=== PATIENT | male | born 1985 | race Caucasian/White ===

== ENCOUNTER 2022-05-02 17:10 | Emergency (ER) | payer OTHER ==
[2022-05-02 17:21] VITALS: BP 107/67; PULSE 76; RESP 20; TEMP 98.3
--- NOTE | 2022-05-02 17:39 | ED ---
General Adult HPI - General Chief complaint: Extremity Injury, Upper Stated complaint: Wrist injury Time Seen by Provider: 05/02/22 17:21 Source: patient, RN notes reviewed, old records reviewed Mode of arrival: ambulatory Limitations: no limitations - History of Present Illness Initial comments: 37-year-old male presenting with right wrist pain. Patient fell while playing volleyball. He's had pain since the injury which occurred about one hour prior to arrival. He states is difficult to move his fingers secondary to pain. No other injury. No head or neck trauma. - Related Data Allergies Allergy/AdvReac Type Severity Reaction Status Date / Time No Known Allergies Allergy Verified 05/02/22 17:21 Review of Systems ROS Statement: Those systems with pertinent positive or pertinent negative responses have been documented in the HPI. ROS Other: All systems not noted in ROS Statement are negative. Past Medical History Past Medical History: No Reported History History of Any Multi-Drug Resistant Organisms: None Reported Past Surgical History: No Surgical Hx Reported Past Psychological History: No Psychological Hx Reported Smoking Status: Current every day smoker Past Alcohol Use History: None Reported Past Drug Use History: Cocaine General Exam Limitations: no limitations General appearance: alert, in no apparent distress Head exam: Present: atraumatic, normocephalic Eye exam: Present: normal appearance, PERRL ENT exam: Present: normal exam Neck exam: Present: normal inspection. Absent: tenderness, meningismus Respiratory exam: Present: normal lung sounds bilaterally. Absent: respiratory distress, wheezes Cardiovascular Exam: Present: regular rate, normal rhythm GI/Abdominal exam: Present: soft. Absent: distended, tenderness Extremities exam: Present: joint swelling (Right wrist swelling, no gross deformity, distal pulses intact, normal cap refill. Range of motion limited by pain) Neurological exam: Present: alert, oriented X3 Psychiatric exam: Present: normal affect, normal mood Course Vital Signs 05/02/22 17:19 Temperature 98.3 F Pulse Rate 76 Respiratory 20 Rate Blood Pressure 107/67 O2 Sat by Pulse 100 Oximetry Procedures - Orthopedic Splinting/Casting Injury #1 Side: right Upper Extremity Injury Location: wrist Upper Extremity Immobilizer: volar splint, synthetic pre-padded splint Medical Decision Making - Medical Decision Making Patient with right wrist injury, x-rays performed, negative for fracture. Patient does have significant pain with range of motion, placed in a volar splint. Given primary care follow-up. He may require repeat x-rays if symptoms persist. He will ice and elevate. Disposition Clinical Impression: Sprain and strain of wrist Disposition: HOME SELF-CARE Condition: Good Instructions (If sedation given, give patient instructions): Wrist Injury (ED) Is patient prescribed a controlled substance at d/c from ED?: No Referrals: None,Stated [Primary Care Provider] - 1-2 days Xavier Medrano DO [Doctor of Osteopathic Medicine] - 1-2 days Time of Disposition: 17:58
--- NOTE | 2022-05-02 17:49 | XR ---
EXAMINATION TYPE: XR wrist complete RT DATE OF EXAM: 05/02/2022 COMPARISON: None HISTORY: 4 view TECHNIQUE: . FINDINGS: The carpal bones are intact. Joint spaces are fairly normal. Metacarpals are intact IMPRESSION: Normal right wrist exam. No fracture.
[2022-05-02] MEDS ORDERED: KETOROLAC 15 MG/ML 1 ML VIAL IM STA (18:06)
== END 2022-05-02 18:19 | disposition home or self-care (01) ==
LOC: EC 17:10
DX: S66.911A Strain of unspecified muscle, fascia and tendon at wrist and hand level, right hand, initial encounter (principal); F17.200 Nicotine dependence, unspecified, uncomplicated; W18.30XA Fall on same level, unspecified, initial encounter; Y93.68 Activity, volleyball (beach) (court)
CPT/HCPCS: 73110; 99283; 29125; 96372; J1885